=== PATIENT | female | born 1965 | race Caucasian/White ===

== ENCOUNTER 2017-11-29 14:58 | Emergency (ER) | payer SELFPAY ==
[~2017-11-29] VITALS: Ht 157.5 cm; Wt 59.0 kg
[~2017-11-29 14:58] MED LIST: ALBU6.7H IH; FLUT1DIS IH; FLUT1DIS3 IH; LEVO125T5 PO; LEVO50TA5 PO; LEVO750T31 PO; LEVO75TA5 PO; NITR100C62 PO; WARF-78 PO; WARF10TA45 PO; WARF7.5T48 PO; no-kno
[2017-11-29 15:33] LABS: BASO # 0.1 x10^3/uL (0.0-0.2); BASO % 1 % (0-3); EOS # 0.3 x10^3/uL (0.0-0.7); EOS % 4 % (0-3); HEMATOCRIT 41.4 % (36.0-47.0); HEMOGLOBIN 13.7 g/dL (12.0-15.5); LYMPH # 1.8 x10^3/uL (1.0-4.8); LYMPH % 26 % (24-48); MEAN CORPUSCULAR HEMOGLOBIN 30 pg (25-35); MEAN CORPUSCULAR HGB CONC 33 g/dL (31-37); MEAN CORPUSCULAR VOLUME 91 fL (79-100); MONO # 0.5 x10^3/uL (0.0-1.1); MONO % 7 % (0-9); NEUT # 4.2 x10^3uL (1.8-7.7); NEUT % 62 % (31-73); PLATELET COUNT 285 x10^3/uL (140-400); RED BLOOD COUNT 4.56 x10^6/uL (3.50-5.40); RED CELL DISTRIBUTION WIDTH 15.7 % (11.5-14.5); WHITE BLOOD COUNT 6.8 x10^3/uL (4.0-11.0)
--- NOTE | 2017-11-29 15:45 | RAD ---
Examination: PORTABLE CHEST 1V History: PT states chest pain x1 week hx of COPD Comparison/Correlation: None Findings: Portable frontal view chest was obtained. Heart size and pulmonary vasculature are normal. No infiltrate or pleural effusion. Bony structures are normal. No pneumothorax. Impression: No active disease. Electronically signed by: Buddy Bernal MD (11/29/2017 3:42 PM) [facility]
[2017-11-29 15:49] LABS: ALBUMIN 3.5 g/dL (3.4-5.0); ALBUMIN/GLOBULIN RATIO 0.9 (1.0-1.7); CALCIUM 8.7 mg/dL (8.5-10.1); CREATININE 0.9 mg/dL (0.6-1.0); GFR 65.8; POTASSIUM 3.7 mmol/L (3.5-5.1); TOTAL BILIRUBIN 0.3 mg/dL (0.2-1.0); TOTAL PROTEIN 7.6 g/dL (6.4-8.2)
[2017-11-29] MEDS ORDERED: IOHEXOL 300 MG/ML 75 ML VIAL. IV ONE (16:15)
--- NOTE | 2017-11-29 16:56 | PHYS DOC ---
Past History Past Medical History: COPD, Hypothyroid, Other Past Surgical History: , Other Smoking: Cigarettes, Less than 1pk/day Alcohol Use: Rarely Drug Use: None Adult General Chief Complaint Chief Complaint: CHEST PAIN HPI HPI Patient is a 52 year old female who presents with complaining of chest pain and shortness of breath for one week. Patient complaining of a stabbing pain in her lower substernal and epigastric area with radiation to her back as a constant pain for the last one week associated with shortness of breath without nausea and vomiting, fever and chills. She rated her pain 9/10 and states the pain getting worse with movement and activity. Patient states she has history of PE on Xarelto but stopped taking Xarelto 2 months ago because of financial problem. Review of Systems Review of Systems Constitutional: Denies fever or chills [] Eyes: Denies change in visual acuity, redness, or eye pain [] HENT: Denies nasal congestion or sore throat [] Respiratory: Reports cough and shortness of breath Cardiovascular: No additional information not addressed in HPI [] GI: Denies abdominal pain, nausea, vomiting, bloody stools or diarrhea [] : Denies dysuria or hematuria [] Musculoskeletal: Denies back pain or joint pain [] Integument: Denies rash or skin lesions [] Neurologic: Denies headache, focal weakness or sensory changes [] Endocrine: Denies polyuria or polydipsia [] All other systems were reviewed and found to be within normal limits, except as documented in this note. Current Medications Current Medications Current Medications Medications (Trade) Dose Ordered Sig/[facility] Start Time Stop Time Status Last Admin Dose Admin Iohexol (Omnipaque 300 Mg/ml) 75 ml 1X ONCE 11/29/17 16:15 11/29/17 16:17 DC 11/29/17 16:27 75 ML Allergies Allergies Allergies Coded Allergies Type Severity Reaction Last Updated Verified Penicillins Allergy Severe TONGUE SWELLING 12/27/13 Yes Physical Exam Physical Exam Constitutional: Well developed, well nourished, mild distress, non-toxic appearance. [] HENT: Normocephalic, atraumatic, oropharynx moist, no oral exudates, nose normal. [] Eyes: PERRLA, EOMI, conjunctiva normal, no discharge. [] Neck: Normal range of motion, no tenderness, supple, no stridor. [] Cardiovascular:Heart rate regular rhythm, no murmur [] LUNG: Normal bilateral breath sounds, reproducible substernal and epigastric pain Abdomen: Bowel sounds normal, soft, no tenderness, no masses, no pulsatile masses. [] Skin: Warm, dry, no erythema, no rash. [] Back: No tenderness, no CVA tenderness. [] Extremities: No tenderness, no cyanosis, no clubbing, ROM intact, no edema. [] Neurologic: Alert and oriented X 3, normal motor function, normal sensory function, no focal deficits noted. [] Psychologic: Affect anxious, judgement normal, mood normal. [] Current Patient Data Vital Signs Vital Signs Date Time Temp Pulse Resp B/P (MAP) Pulse Ox O2 Delivery O2 Flow Rate FiO2 11/29/17 16:08 80 16 120/77 (91) 95 Room Air 11/29/17 15:05 97.5 Lab Results Laboratory Tests Test 11/29/17 15:18 White Blood Count 6.8 x10^3/uL (4.0-11.0) Red Blood Count 4.56 x10^6/uL (3.50-5.40) Hemoglobin 13.7 g/dL (12.0-15.5) Hematocrit 41.4 % (36.0-47.0) Mean Corpuscular Volume 91 fL (79-100) Mean Corpuscular Hemoglobin 30 pg (25-35) Mean Corpuscular Hemoglobin Concent 33 g/dL (31-37) Red Cell Distribution Width 15.7 % (11.5-14.5) H Platelet Count 285 x10^3/uL (140-400) Neutrophils (%) (Auto) 62 % (31-73) Lymphocytes (%) (Auto) 26 % (24-48) Monocytes (%) (Auto) 7 % (0-9) Eosinophils (%) (Auto) 4 % (0-3) H Basophils (%) (Auto) 1 % (0-3) Neutrophils # (Auto) 4.2 x10^3uL (1.8-7.7) Lymphocytes # (Auto) 1.8 x10^3/uL (1.0-4.8) Monocytes # (Auto) 0.5 x10^3/uL (0.0-1.1) Eosinophils # (Auto) 0.3 x10^3/uL (0.0-0.7) Basophils # (Auto) 0.1 x10^3/uL (0.0-0.2) Sodium Level 141 mmol/L (136-145) Potassium Level 3.7 mmol/L (3.5-5.1) Chloride Level 102 mmol/L (98-107) Carbon Dioxide Level 32 mmol/L (21-32) Anion Gap 7 (6-14) Blood Urea Nitrogen 13 mg/dL (7-20) Creatinine 0.9 mg/dL (0.6-1.0) Estimated GFR (Cockcroft-Gault) 65.8 BUN/Creatinine Ratio 14 (6-20) Glucose Level 87 mg/dL (70-99) Calcium Level 8.7 mg/dL (8.5-10.1) Total Bilirubin 0.3 mg/dL (0.2-1.0) Aspartate Amino Transferase (AST) 124 U/L (15-37) H Alanine Aminotransferase (ALT) 138 U/L (14-59) H Alkaline Phosphatase 123 U/L (46-116) H Creatine Kinase 129 U/L (26-192) Troponin I Quantitative < 0.017 ng/mL (0-0.055) Total Protein 7.6 g/dL (6.4-8.2) Albumin 3.5 g/dL (3.4-5.0) Albumin/Globulin Ratio 0.9 (1.0-1.7) L EKG EKG EKG interpreted by me. EKG at 1506 showed normal sinus rhythm at rate of 82, leftward axis, poor R-wave progress in inferior leads, no acute ST and T-wave abnormalities Radiology/Procedures Radiology/Procedures [address] [address] IMAGING REPORT Signed PATIENT: AMARI TALAMANTES ACCOUNT: [id number] : 1965 LOCATION: ER AGE: 52 SEX: F EXAM STATUS: REG ER ORD. PHYSICIAN: CHRISTIANO ALONZO MD REASON: chest pain PROCEDURE: PORTABLE CHEST 1V Examination: PORTABLE CHEST 1V History: PT states chest pain x1 week hx of COPD Comparison/Correlation: None Findings: Portable frontal view chest was obtained. Heart size and pulmonary vasculature are normal. No infiltrate or pleural effusion. Bony structures are normal. No pneumothorax. Impression: No active disease. Electronically signed by: Buddy Polanco MD (11/29/2017 3:42 PM) [facility] DICTATED AND SIGNED BY: BUDDY POLANCO MD DATE: 11/29/17 1541 CC: ANA MARÍA HERNANDEZ APRN; CHRISTIANO ALONZO MD ~ [address] [address] IMAGING REPORT Signed PATIENT: AMARI TALAMANTES ACCOUNT: [id number] : 1965 LOCATION: ER AGE: 52 SEX: F EXAM STATUS: REG ER ORD. PHYSICIAN: CHRISTIANO ALONZO MD REASON: chest pain and shortness of breath with history of PE PROCEDURE: CT ANGIOGRAPHY CHEST CT ANGIOGRAPHY CHEST Indication: CHEST PAIN HX OF PE 75 mL OMNI 300 . Comparison: Limited images from September 10, 2014, no report. Technique: After intravenous contrast administration, CT imaging was performed of the chest. MIP reconstructions were obtained. Exposure: One or more of the following individualized dose reduction techniques were utilized for this examination: 1. Automated exposure control 2. Adjustment of the mA and/or kV according to patient size 3. Use of iterative reconstruction technique. FINDINGS: Pulmonary arteries: Small embolism identified in posterior segment right lower lobe pulmonary artery. It is difficult to determine if this is acute or chronic, but could be acute. No other definite emboli are identified. Thoracic aorta: Borderline ascending aortic ectasia at 4 cm. This is similar to the prior exam. No descending aortic aneurysm. Due to bolus timing, the aorta is not adequately opacified with contrast to exclude dissection. Thyroid gland:Visualized aspect is unremarkable. Lymph nodes:No significant enlargement Heart: No significant pericadial effusion. Esophagus: Unremarkable Pleural spaces: No significant effusion Lungs: Noncalcified left upper lobe nodule or opacity measures 15 mm. This region is included on the available images from the prior study, and this was not present at that time. Several small subpleural nodular opacities at the right lung apex, largest measures 5 mm. Mild markings in the lung bases, compatible with fibrosis or atelectasis. Trachea and central airways: Patent Bones: Degenerative spondylosis. No aggressive bone destruction. Upper abdomen: Slices through the upper abdomen are limited due to the technique . Large gallstone is partially visualized. IMPRESSION: 1. Positive for pulmonary embolism. Small embolism identified in right lower lobe posterior segmental branch. 2. Left upper lobe opacity or mass measures 15 mm diameter. Malignant etiology is possible. As per Fleischner Society guidelines, consider follow-up CT chest in 3 months, PET/CT scan or tissue sampling. Note there are several additional smaller nonspecific subpleural nodules at the right lung apex. 3. Cholelithiasis FOR INTERNAL CODING PURPOSES Critical result: Findings discussed with Dr. Alonzo at 11/29/2017 5:13 PM. RESULT CODE: (C) Electronically signed by: Jesus Gomes MD (11/29/2017 5:14 PM) [facility] DICTATED AND SIGNED BY: JESUS GOMES MD DATE: 11/29/17 386 CC: ANA MARÍA HERNANDEZ APRN; CHRISTIANO ALONZO MD ~ [place] [address] IMAGING REPORT Signed PATIENT: AMARI TALAMANTES ACCOUNT: [id number] : 1965 LOCATION: ER AGE: 52 SEX: F EXAM STATUS: REG ER ORD. PHYSICIAN: CHRISTIANO ALONZO MD REASON: epigastric pain and elevated liver function tests PROCEDURE: ABDOMEN LTD Examination: ABDOMEN LTD History: Epigastric pain, elevated liver function enzymes Comparison/Correlation: None Findings: Hepatic echotexture is normal. Portal vein spectral waveform and color Doppler flow and normal. Proximal pancreas is unremarkable. Distal pancreas is obscured by bowel gas. Liver length is 18.3 cm. Calculus is present within the gallbladder neck. Calculus at the gallbladder fundus also seen. Calculi are not mobile. Gallbladder wall thickness is within normal limits. No biliary dilatation. Common bile duct measures 0.7 cm diameter. Inferior vena cava is normal. No right hydronephrosis. Right kidney measures 10.8 cm longitudinal. Impression: Cholelithiasis without findings of acute cholecystitis. Electronically signed by: Buddy Polanco MD (11/29/2017 5:55 PM) [facility] DICTATED AND SIGNED BY: UBDDY POLANCO MD DATE: 11/29/17 5822 CC: ANA MARÍA HERNANDEZ APRN; CHRISTIANO ALONZO MD ~ Course & Med Decision Making Course & Med Decision Making Pertinent Labs and Imaging studies reviewed. (See chart for details) Evaluation of patient in ER showed 52-year-old female patient with history of PE without taking anticoagulation medication presented with complaining of chest pain and shortness of breath for one week. CT of chest showed small PE and coronary because his and pulmonary nodules. Ultrasound of gallbladder did not show acute cholecystitis. Patient treated with Toradol and Lovenox. Dr. Bhatia accepted admission at 1807. Dragon Disclaimer Dragon Disclaimer This electronic medical record was generated, in whole or in part, using a voice recognition dictation system. Departure Departure: Impression: Primary Impression: Pulmonary embolism and infarction Additional Impressions: Chest pain Elevated liver function tests Tobacco abuse Cholelithiasis Disposition: ADMITTED INPATIENT (at 1808) Admitting Physician: Other (Dr. Bhatia accepted admission at 1807) Condition: GUARDED Referrals: ANA MARÍA HERNANDEZ APRN (PCP) Problem Qualifiers CHRISTIANO ALONZO MD Nov 29, 2017 16:56
[2017-11-29] MEDS ORDERED: KETOROLAC 30 MG/ML VIAL. IV ONE (17:00)
--- NOTE | 2017-11-29 17:17 | RAD ---
CT ANGIOGRAPHY CHEST Indication: CHEST PAIN HX OF PE 75 mL OMNI 300 . Comparison: Limited images from September 10, 2014, no report. Technique: After intravenous contrast administration, CT imaging was performed of the chest. MIP reconstructions were obtained. Exposure: One or more of the following individualized dose reduction techniques were utilized for this examination: 1. Automated exposure control 2. Adjustment of the mA and/or kV according to patient size 3. Use of iterative reconstruction technique. FINDINGS: Pulmonary arteries: Small embolism identified in posterior segment right lower lobe pulmonary artery. It is difficult to determine if this is acute or chronic, but could be acute. No other definite emboli are identified. Thoracic aorta: Borderline ascending aortic ectasia at 4 cm. This is similar to the prior exam. No descending aortic aneurysm. Due to bolus timing, the aorta is not adequately opacified with contrast to exclude dissection. Thyroid gland:Visualized aspect is unremarkable. Lymph nodes:No significant enlargement Heart: No significant pericadial effusion. Esophagus: Unremarkable Pleural spaces: No significant effusion Lungs: Noncalcified left upper lobe nodule or opacity measures 15 mm. This region is included on the available images from the prior study, and this was not present at that time. Several small subpleural nodular opacities at the right lung apex, largest measures 5 mm. Mild markings in the lung bases, compatible with fibrosis or atelectasis. Trachea and central airways: Patent Bones: Degenerative spondylosis. No aggressive bone destruction. Upper abdomen: Slices through the upper abdomen are limited due to the technique . Large gallstone is partially visualized. IMPRESSION: 1. Positive for pulmonary embolism. Small embolism identified in right lower lobe posterior segmental branch. 2. Left upper lobe opacity or mass measures 15 mm diameter. Malignant etiology is possible. As per Fleischner Society guidelines, consider follow-up CT chest in 3 months, PET/CT scan or tissue sampling. Note there are several additional smaller nonspecific subpleural nodules at the right lung apex. 3. Cholelithiasis FOR INTERNAL CODING PURPOSES Critical result: Findings discussed with Dr. Dalton at 11/29/2017 5:13 PM. RESULT CODE: (C) Electronically signed by: Jesus Gomes MD (11/29/2017 5:14 PM) [facility] [place]
--- NOTE | 2017-11-29 17:29 | EKG ---
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
[2017-11-29] MEDS ORDERED: ENOXAPARIN ** NOTE DOSE ** SYRINGE SQ ONE (17:30)
--- NOTE | 2017-11-29 17:59 | RAD ---
Examination: ABDOMEN LTD History: Epigastric pain, elevated liver function enzymes Comparison/Correlation: None Findings: Hepatic echotexture is normal. Portal vein spectral waveform and color Doppler flow and normal. Proximal pancreas is unremarkable. Distal pancreas is obscured by bowel gas. Liver length is 18.3 cm. Calculus is present within the gallbladder neck. Calculus at the gallbladder fundus also seen. Calculi are not mobile. Gallbladder wall thickness is within normal limits. No biliary dilatation. Common bile duct measures 0.7 cm diameter. Inferior vena cava is normal. No right hydronephrosis. Right kidney measures 10.8 cm longitudinal. Impression: Cholelithiasis without findings of acute cholecystitis. Electronically signed by: Buddy Bernal MD (11/29/2017 5:55 PM) [facility]
[2017-11-29 19:13] VITALS: BP 140/95
== END 2017-11-29 19:15 | disposition left against medical advice (07) ==
LOC: ER 14:58 → UNDOADMIN 18:08 → 1 SOUTH 18:08
DX: I26.99 Other pulmonary embolism without acute cor pulmonale (principal); R79.89 Other specified abnormal findings of blood chemistry; K80.20 Calculus of gallbladder without cholecystitis without obstruction; J44.9 Chronic obstructive pulmonary disease, unspecified; E03.9 Hypothyroidism, unspecified; F17.210 Nicotine dependence, cigarettes, uncomplicated; Z88.0 Allergy status to penicillin
CPT/HCPCS: 36415; 71045; 71275; 76705; 80053; 82550; 84484; 85025; 93005; 96372; 96374; 99285; J1650; J1885; Q9967

== ENCOUNTER 2018-01-02 03:03 | Inpatient (IN) | payer SELFPAY ==
[~2018-01-02] VITALS: Ht 162.6 cm; Wt 73.7 kg
--- NOTE | 2018-01-02 03:11 | ED.ADGEN ---
Past History Past Medical History: COPD, Hypothyroid, Other Past Surgical History: , Other Smoking: Cigarettes, Less than 1pk/day Alcohol Use: Rarely Drug Use: None Adult General Chief Complaint Chief Complaint ".. I fell about a month ago... and hurt this Rt hip.... but it has continue to hurt.. it hurts a lot more tonight.. and my chest pain is worse the last two days.. much worse tonight.. I been out my Xarelto.. I got that lung mass and was to get a biopsy which hasn't been scheduled yet... ".." I go to [place]... " " I am down to 1/2 cigarette a day...." HPI HPI Patient is a 52 year old female who presents with above hx and complaints "bad" chest pain and Rt. hip pain. Pt. seen in , and found to have a PE and Lung Mass. Pt. has run out of her Xeralto. Pt does continue to smoke. Pt. normally follow at [place]. Pt. localizes chest pain to just Lt of sternal lower half. Nothing makes the pain better. Patient insisted labs today and markedly increased tonight. Patient also complaining of increased pain in right hip and knee range of motion. Does have a remote history of a fall with no improvement of right hip pain. Distal neurovascular intact. Patient was able to walk into the emergency department. Patient denies any other illicit drug use. Patient denies any trauma. Patient has not had a follow-up appointment for biopsy of lung mass. Review of Systems Review of Systems Constitutional: Denies fever or chills [] Eyes: Denies change in visual acuity, redness, or eye pain [] HENT: Denies nasal congestion or sore throat [] Respiratory: Denies cough or shortness of breath [] Cardiovascular: No additional information not addressed in HPI [] GI: Denies abdominal pain, nausea, vomiting, bloody stools or diarrhea [] : Denies dysuria or hematuria [] Musculoskeletal: Denies back pain or joint pain []Except complaints of Rt. hip pain. Integument: Denies rash or skin lesions [] Neurologic: Denies headache, focal weakness or sensory changes [] Endocrine: Denies polyuria or polydipsia [] All other systems were reviewed and found to be within normal limits, except as documented in this note. Family History Family History Noncontributory Current Medications Current Medications Current Medications Medications (Trade) Dose Ordered Sig/[facility] Start Time Stop Time Status Last Admin Dose Admin Aspirin (Children'S Aspirin) 324 mg 1X ONCE 01/02/18 03:30 01/02/18 03:31 DC 01/02/18 04:29 324 MG Info (Do NOT chart on this entry -- for MONITORING) 1 each PRN DAILY PRN 01/02/18 03:45 01/02/18 16:31 DC Iohexol (Omnipaque 300 Mg/ml) 75 ml 1X ONCE 01/02/18 04:00 01/02/18 04:01 DC 01/02/18 03:52 75 ML Lactated Ringer's 1,000 ml @ 100 mls/hr Q10H 01/02/18 03:30 01/02/18 13:29 DC 01/02/18 04:29 100 MLS/HR Morphine Sulfate (Morphine 10mg Syringe) 10 mg 1X ONCE 01/02/18 03:30 01/02/18 03:31 DC 01/02/18 04:31 10 MG Allergies Allergies Allergies Coded Allergies Type Severity Reaction Last Updated Verified Penicillins Allergy Severe TONGUE SWELLING 12/27/13 Yes Physical Exam Physical Exam Constitutional: in acute distress, non-toxic appearance. [] HENT: Normocephalic, atraumatic, bilateral external ears normal, oropharynx moist, no oral exudates, nose normal. [] Eyes: PERRLA, EOMI, conjunctiva normal, no discharge. [] Neck: Normal range of motion, no tenderness, supple, no stridor. [] Cardiovascular: Bradycardia Heart rate regular rhythm, no murmur [] Lungs & Thorax: Bilateral breath sounds equal at apexes scattered wheezes on Auscultation [] Abdomen: Bowel sounds normal, soft, no tenderness, no masses, no pulsatile masses. [] Scar in abd. Skin: Warm, dry, no erythema, no rash. [] Back: No tenderness, no CVA tenderness. [] Extremities: No tenderness, no cyanosis, no clubbing, ROM intact, no edema. [] No cording appreciate. Pain appear to follow branch of sciatic nerve in Rt. hip. Neurologic: Alert and oriented X 3, normal motor function, normal sensory function, no focal deficits noted. [] Psychologic: Affect anxious, judgement normal, mood normal. [] Current Patient Data Vital Signs Vital Signs Date Time Temp Pulse Resp B/P (MAP) Pulse Ox O2 Delivery O2 Flow Rate FiO2 01/02/18 03:16 98.2 66 18 98 Lab Results Laboratory Tests Test 01/02/18 03:30 01/02/18 04:30 White Blood Count 5.7 x10^3/uL (4.0-11.0) Red Blood Count 4.10 x10^6/uL (3.50-5.40) Hemoglobin 13.1 g/dL (12.0-15.5) Hematocrit 38.2 % (36.0-47.0) Mean Corpuscular Volume 93 fL (79-100) Mean Corpuscular Hemoglobin 32 pg (25-35) Mean Corpuscular Hemoglobin Concent 34 g/dL (31-37) Red Cell Distribution Width 18.6 % (11.5-14.5) H Platelet Count 235 x10^3/uL (140-400) Neutrophils (%) (Auto) 38 % (31-73) Lymphocytes (%) (Auto) 48 % (24-48) Monocytes (%) (Auto) 9 % (0-9) Eosinophils (%) (Auto) 4 % (0-3) H Basophils (%) (Auto) 1 % (0-3) Neutrophils # (Auto) 2.1 x10^3uL (1.8-7.7) Lymphocytes # (Auto) 2.7 x10^3/uL (1.0-4.8) Monocytes # (Auto) 0.5 x10^3/uL (0.0-1.1) Eosinophils # (Auto) 0.2 x10^3/uL (0.0-0.7) Basophils # (Auto) 0.1 x10^3/uL (0.0-0.2) Prothrombin Time 10.7 SEC (9.4-11.4) Prothrombin Time INR 1.1 (0.9-1.1) PTT 28 SEC (23-33) D-Dimer (Felipa) 0.36 mg/L (0.00-0.50) Sodium Level 140 mmol/L (136-145) Potassium Level 3.3 mmol/L (3.5-5.1) L Chloride Level 104 mmol/L (98-107) Carbon Dioxide Level 30 mmol/L (21-32) Anion Gap 6 (6-14) Blood Urea Nitrogen 9 mg/dL (7-20) Creatinine 0.9 mg/dL (0.6-1.0) Estimated GFR (Cockcroft-Gault) 65.8 Glucose Level 96 mg/dL (70-99) Calcium Level 8.6 mg/dL (8.5-10.1) Magnesium Level 1.9 mg/dL (1.8-2.4) Total Bilirubin 0.4 mg/dL (0.2-1.0) Direct Bilirubin 0.1 mg/dL (0.0-0.2) Aspartate Amino Transferase (AST) 117 U/L (15-37) H Alanine Aminotransferase (ALT) 288 U/L (14-59) H Alkaline Phosphatase 146 U/L (46-116) H Creatine Kinase 96 U/L (26-192) Troponin I Quantitative < 0.017 ng/mL (0-0.055) PB-Gub-L-Type Natriuretic Peptide 22 pg/mL (0-124) Total Protein 7.2 g/dL (6.4-8.2) Albumin 3.5 g/dL (3.4-5.0) Triglycerides Level 72 mg/dL (0-150) Cholesterol Level 155 mg/dL (0-200) LDL Cholesterol, Calculated 94 mg/dL (0-100) VLDL Cholesterol, Calculated 14 mg/dL (0-40) Non-HDL Cholesterol Calculated 108 mg/dL (0-129) HDL Cholesterol 47 mg/dL (40-60) Cholesterol/HDL Ratio 3.0 Lipase 235 U/L (73-393) Thyroid Stimulating Hormone (TSH) 7.545 uIU/mL (0.358-3.740) Urine Collection Type U cath Urine Color Yellow Urine Clarity Hazy Urine pH 6.0 Urine Specific [place] <=1.005 Urine Protein Neg (NEG-TRACE) Urine Glucose (UA) Neg mg/dL (NEG) Urine Ketones (Stick) Neg mg/dL (NEG) Urine Blood Neg (NEG) Urine Nitrite Neg (NEG) Urine Bilirubin Neg (NEG) Urine Urobilinogen Dipstick 0.2 mg/dL (0.2 mg/dL) Urine Leukocyte Esterase Trace (NEG) Urine RBC 0 /HPF (0-2) Urine WBC 1-4 /HPF (0-4) Urine Squamous Epithelial Cells Few /LPF Urine Bacteria Few /HPF (0-FEW) Urine Opiates Screen Neg (NEG) Urine Methadone Screen Neg (NEG) Urine Barbiturates Neg (NEG) Urine Phencyclidine Screen Neg (NEG) Urine Amphetamine/Methamphetamine Neg (NEG) Urine Benzodiazepines Screen Neg (NEG) Urine Cocaine Screen Neg (NEG) Urine Cannabinoids Screen Neg (NEG) Urine Ethyl Alcohol Neg (NEG) EKG EKG I interpretation of EKG shows sinus rhythm at 65 bpm. Slightly irregular rhythm. Does appear to have P waves. There is left axis changes. Some nonspecific anterior septal changes. But no findings acute STEMI of contralateral changes.[] Radiology/Procedures Radiology/Procedures My interpretation of chest x-ray shows no acute changes from prior chest x-rays on file. Does have some pulmonary nodules left upper lobe. And patchy right lower lobe blunting. CT of chest shows interval change from prior CT on file. Pulmonary nodules. No acute PE.[] My interpretation of pelvis and hip film shows no obvious fracture dislocation. Degenerative joint changes. CT findings of pelvis shows no obvious fracture dislocation. There is noted marked no flame oh narrowing. There is no central stenosis. See formal report when available. Course & Med Decision Making Course & Med Decision Making Pertinent Labs and Imaging studies reviewed. (See chart for details) Pt. to be admitted to Dr. Mehta- with cardiology consult. [] Final Impression Final Impression 1. Chest Pain 2. Hx of Lung Mass- / Nodules 3. Hx. of Pul. embolism 4. Hx. of COPD[] 5. Rt. Hip pain- Suspect Sciatica 6. Hypokalemia 3.3 7. Elevated LFT's AST 117, ALT 288, Alk Phos 146 Dragon Disclaimer Dragon Disclaimer This electronic medical record was generated, in whole or in part, using a voice recognition dictation system. NENITA HUTCHINS MD Jan 02, 2018 03:11
--- NOTE | 2018-01-02 03:24 | EKG ---
[address] [address] Test Date: 2018-01-02 Test Time: 03:15:33 Pat Name: AMARI GREGG Department: Room: Gender: F Highway Design Engineer: : 1965 Requested By: NENITA HUTCHINS Order Number: [id number] Reading MD: Chuy Montoya MD Measurements Intervals [place] [address] [place] Rate: 65 P: DC: QRS: -21 QRSD: 86 T: 0 QT: 404 QTc: 421 Interpretive Statements SR PVC Electronically Signed On 01-02-2018 13:08:05 CDT by Chuy Montoya MD
[2018-01-02] MEDS ORDERED: IV RINGERS SOLUTION,LACTATED 1,000 ML IV SCH (03:30)
[2018-01-02] MEDS ORDERED: MORPHINE SULFATE 10 MG/ML SYRINGE. SQ ONE (03:30)
[2018-01-02] MEDS ORDERED: ASPIRIN 81 MG TAB.CHEW PO ONE (03:30)
[2018-01-02] MEDS ORDERED: CONTRAST GIVEN MC PRN (03:45)
[2018-01-02 03:54] LABS: BASO # 0.1 x10^3/uL (0.0-0.2); BASO % 1 % (0-3); EOS # 0.2 x10^3/uL (0.0-0.7); EOS % 4 % (0-3); HEMATOCRIT 38.2 % (36.0-47.0); HEMOGLOBIN 13.1 g/dL (12.0-15.5); LYMPH # 2.7 x10^3/uL (1.0-4.8); LYMPH % 48 % (24-48); MEAN CORPUSCULAR HEMOGLOBIN 32 pg (25-35); MEAN CORPUSCULAR HGB CONC 34 g/dL (31-37); MEAN CORPUSCULAR VOLUME 93 fL (79-100); MONO # 0.5 x10^3/uL (0.0-1.1); MONO % 9 % (0-9); NEUT # 2.1 x10^3uL (1.8-7.7); NEUT % 38 % (31-73); PLATELET COUNT 235 x10^3/uL (140-400); RED CELL DISTRIBUTION WIDTH 18.6 % (11.5-14.5); WHITE BLOOD COUNT 5.7 x10^3/uL (4.0-11.0)
[2018-01-02] MEDS ORDERED: IOHEXOL 300 MG/ML 75 ML VIAL. IV ONE (04:00)
[2018-01-02 04:06] LABS: ALBUMIN 3.5 g/dL (3.4-5.0); CALCIUM 8.6 mg/dL (8.5-10.1); CREATININE 0.9 mg/dL (0.6-1.0); DIRECT BILIRUBIN 0.1 mg/dL (0.0-0.2); GFR 65.8; MAGNESIUM 1.9 mg/dL (1.8-2.4); POTASSIUM 3.3 mmol/L (3.5-5.1); TOTAL BILIRUBIN 0.4 mg/dL (0.2-1.0); TOTAL PROTEIN 7.2 g/dL (6.4-8.2)
--- NOTE | 2018-01-02 04:42 | RAD ---
CTA Chest with contrast: Clinical History: Severe lower back pain, fall 1 month ago. Hx: Hernia repair Shortness of breath. Axial helical images of the chest were obtained after the administration of 75 cc of IV Omni 300 and timed appropriately for a pulmonary arterial study. Conventional axial reconstruction was performed in addition to coronal, sagittal and bilateral oblique MIP (maximum intensity projection). This study was ordered to detect possible pulmonary embolism. There are no filling defects to suggest pulmonary embolism. The more peripheral subsegmental pulmonary arteries are not well opacified limiting our sensitivity for small peripheral pulmonary emboli. There is a nodular opacity in the left upper lobe that measures 8 mm x 1 1 cm. There is patchy opacity in the right lower lobe laterally abutting the pleura that measures 1.7 x 0.9 cm. There is no mediastinal or hilar lymphadenopathy. The ascending thoracic aorta is mildly dilated to 3.6 cm in diameter. Impression: 1. No evidence of pulmonary embolism. 2. Mildly dilated ascending thoracic aorta. 3. 2 pulmonary nodules. Recommend a three-month follow-up CT the chest without contrast. CT lumbar spine without contrast History: Back pain Axial helical images of the lumbar spine were obtained without contrast. Axial, coronal and sagittal reconstruction was performed. Findings: The vertebral bodies are aligned. There is no loss of vertebral body stature. Evaluation of the central canal is limited without contrast. There is no significant central stenosis. There is moderate narrowing of the neuroforamen bilaterally below the level of the exiting nerve roots. There is spondylolysis on the right at L5-S1. End impression CT pelvis without contrast: Axial helical images of the pelvis were obtained and axial coronal and sagittal reconstruction was performed. FINDINGS: The visualized osseous structures appear intact. There is no free fluid. IMPRESSION: No acute findings. See CTA chest with contrast. PQRS Compliance Statement: One or more of the following individualized dose reduction techniques were utilized for this examination: 1. Automated exposure control 2. Adjustment of the mA and/or kV according to patient size 3. Use of iterative reconstruction technique Electronically signed by: Thad Donahue III, MD (01/02/2018 4:38 AM) [facility] [id number]
[2018-01-02 04:54] LABS: BILIRUBIN,URINE NEG (NEG); CLARITY,URINE HAZY; COLOR,URINE YELLOW; GLUCOSE,URINE NEG (NEG); NITRITE,URINE NEG (NEG); RBC,URINE 0 /HPF (0-2); UROBILINOGEN,URINE 0.2 mg/dL (0.2 mg/dL)
[2018-01-02 04:55] LABS: BACTERIA,URINE FEW /HPF (0-FEW); SQUAMOUS EPITHELIAL CELL,UR FEW /LPF
[2018-01-02 04:58] LABS: BARBITURATES NEG (NEG); BENZODIAZEPINES NEG (NEG); CANNABINOIDS NEG (NEG); COCAINE NEG (NEG); METHADONE NEG (NEG); OPIATES NEG (NEG); PHENCYCLIDINE NEG (NEG)
[2018-01-02] MEDS ORDERED: ONDANSETRON PF 4 MG/2 ML VIAL. IV PRN ×2 (05:00→09:30)
[2018-01-02] MEDS ORDERED: RIVAROXABAN 10 MG TABLET. PO SCH (05:00)
[2018-01-02 05:01] LABS: AMPHETAMINE/METHAMPHETAMINE NEG (NEG)
[2018-01-02] MEDS ORDERED: POTASSIUM CHLORIDE 20 MEQ/15 ML ORAL LIQUID. PO ONE (05:30)
[2018-01-02 06:43] VITALS: BP 111/79
--- NOTE | 2018-01-02 07:46 | RAD ---
AP and Lateral Views of the Chest 01/02/2018 3:14 AM Indication: Chest pain, cough, possible lung mass per patient dx'd 1mth ago, history of blood clots
Comparison: Chest radiograph November 29, 2017 Findings: Best seen on frontal view is a somewhat ill-defined nodular opacity, just lateral to the aortic arch in the left upper lobe. This is better delineated on prior CT of the chest. No pneumothorax, or pleural effusion is seen. Heart size is normal. No acute osseous changes are identified. IMPRESSION: 1.Similar nodular opacity in the medial left upper lobe 2. No other acute cardiopulmonary process is identified Electronically signed by: Salomon Trujillo MD (01/02/2018 7:43 AM) [id number]
[2018-01-02] MEDS: IPRATRPIUM/ALBUTEROL 0.5/2.5MG 3 ML NEBU. NEB SCH ×3 (08:00→15:23)
--- NOTE | 2018-01-02 08:07 | RAD ---
HIP RIGHT 2V WITH PELVIS Clinical Indication: Severe pelvic and rt hip pain, fall 1 mth ago. Hx: Hernia repair Comparison: None. Findings: No acute pelvic fracture. The sacroiliac joints are symmetric. No fracture or dislocation of the right hip. The mineralization is normal. Soft tissues unremarkable. IMPRESSION: No acute fracture. Electronically signed by: Bandar Ruano MD (01/02/2018 8:04 AM) [id number]
--- NOTE | 2018-01-02 09:31 | PDOC2 ---
DEBBIE BLAIR APRN 01/02/18 0930: CONSULT Date of Admission DATE: 01/02/18 TIME: 09:25 Reason for Consult: cp Problem List Problems Medical Problems: (1) Chest pain Status: Acute History of Present Illness Ms Navarro is a 52 year old female who presented to the ED with complaints of chest and hip pain. She has a history of recent diagnosed PE and Lung mass and has run out of her Xarelto. She states she only missed one dose. She is currently curled on her side with a washcloth over her face complaining of a headache and nausea caused by pain medications. History is limited and obtained mostly from the chart. She had apparently reported localized pain over the lower 1/2 of her sternum. She denies any exacerbation or relieving factors. She also complained of pain in her right hip and knee. She had a remote history of fall but reports no improvement since then. She Denies any recent fever, chills or illness. She had apparently been set up for further workup re: lung mass but according to her family member at the bedside, she did not go. She currently is answering yes or no questions only and keeping face covered. Past Medical History PAST MEDICAL HISTORY: Significant for DVT and multiple recurrent PEs, hypothyroidism, chronic obstructive pulmonary disease and recently diagnosed lung nodules/mass by report. Past Surgical History right inguinal hernia repair x2 and x2. Family History mother with history of multiple blood clots Social History SOCIAL HISTORY: prior smoker, denies ETOH or illicit drugs. normally follows with [facility] for primary care. Current Medications Current Medications Aspirin (Children'S Aspirin) 324 mg 1X ONCE PO Last administered on at 04:29; Start 01/02/18 at 03:30; Stop 01/02/18 at 03:31; Status DC Lactated Ringer's 1,000 ml @ 100 mls/hr Q10H IV Last administered on at 04:29; Start 01/02/18 at 03:30; Stop 01/02/18 at 13:29 Rivaroxaban (Xarelto) 20 mg DAILYWSUP PO Last administered on 01/02/18at 05:32 ; Start 01/02/18 at 05:00 Morphine Sulfate (Morphine 10mg Syringe) 10 mg 1X ONCE SQ Last administered on 01/02/18at 04:31; Start 01/02/18 at 03:30; Stop 01/02/18 at 03:31; Status DC Iohexol (Omnipaque 300 Mg/ml) 75 ml 1X ONCE IV Last administered on at 03:52; Start 01/02/18 at 04:00; Stop 01/02/18 at 04:01; Status DC Info (Do NOT chart on this entry -- for MONITORING) 1 each PRN DAILY PRN MC SEE COMMENTS; Start 01/02/18 at 03:45; Stop 01/04/18 at 03:44 Ondansetron HCl (Zofran) 4 mg PRN Q4HRS PRN IV NAUSEA/VOMITING; Start at 05:00; Stop 01/03/18 at 04:59 Albuterol/ Ipratropium (Duoneb) 3 ml RTQID NEB ; Start 01/02/18 at 08:00; Stop 01/03/18 at 07:59 Rivaroxaban (Xarelto) 15 mg DAILYWSUP PO ; Start 01/02/18 at 17:00; Status UNV Potassium Chloride (KCl Oral Soln) 40 meq 1X ONCE PO ; Start 01/02/18 at 05:30 ; Stop 01/02/18 at 05:31; Status DC Active Scripts Active Levothyroxine Sodium 125 Mcg Tablet 1 Tab PO DAILY PRN 30 Days Levaquin (Levofloxacin) 750 Mg Tablet 1 Tab PO DAILY Macrobid 100 Mg Capsule (Nitrofurantoin Monohyd/M-Cryst) 100 Mg Capsule 1 Cap PO BID Coumadin (Warfarin Sodium) 7.5 Mg Tablet 1 Tab PO DAILY PRN 30 Days Reported Proventil Hfa Inhaler (Albuterol Sulfate) 6.7 Gm Hfa.aer.ad 2 Puff IH Q4HRS PRN Advair 100-50 Diskus (Fluticasone/Salmeterol) 1 Each Disk.w.dev 1 Puff IH BID 2 times daily Proventil Hfa Inhaler (Albuterol Sulfate) 6.7 Gm Hfa.aer.ad 1 Puff IH PRN Levothyroxine Sodium 50 Mcg Tablet 50 Mcg PO DAILY Coumadin (Warfarin Sodium) 7.5 Mg Tablet 7.5 Mg PO DAILY Coumadin (Warfarin Sodium) 10 Mg Tablet 10 Mg PO DAILY Advair 250-50 Diskus (Fluticasone/Salmeterol) 1 Each Disk.w.dev 1 Each IH DAILY Allergies: Coded Allergies: Penicillins (Verified Allergy, Severe, TONGUE SWELLING, 12/27/13) Review of System as per HPI with currently complaint of headache, lung nodules and pulmonary embolus. Chest pain and otherwise unable to obtain information due to current condition/ mood. General: YES: Fatigue General: Oriented X3, moderate distress HEENT: Atraumatic, Mucous membr. moist/pink Lungs: Clear to auscultation Heart: Other (normal heart sounds without murmurs, gallops or rubs but difficult to hear due to position) Abdomen: Normal bowel sounds Extremities: No cyanosis, No edema, Normal pulses Neuro: Normal speech Psych/Mental Status: Mental status NL VITALS Vital Signs Date Time Temp Pulse Resp B/P (MAP) Pulse Ox O2 Delivery O2 Flow Rate FiO2 01/02/18 06:43 97.2 62 20 111/79 (90) 91 Room Air Labs Laboratory Tests Test 01/02/18 03:30 01/02/18 04:30 White Blood Count 5.7 x10^3/uL (4.0-11.0) Red Blood Count 4.10 x10^6/uL (3.50-5.40) Hemoglobin 13.1 g/dL (12.0-15.5) Hematocrit 38.2 % (36.0-47.0) Mean Corpuscular Volume 93 fL (79-100) Mean Corpuscular Hemoglobin 32 pg (25-35) Mean Corpuscular Hemoglobin Concent 34 g/dL (31-37) Red Cell Distribution Width 18.6 % (11.5-14.5) Platelet Count 235 x10^3/uL (140-400) Neutrophils (%) (Auto) 38 % (31-73) Lymphocytes (%) (Auto) 48 % (24-48) Monocytes (%) (Auto) 9 % (0-9) Eosinophils (%) (Auto) 4 % (0-3) Basophils (%) (Auto) 1 % (0-3) Neutrophils # (Auto) 2.1 x10^3uL (1.8-7.7) Lymphocytes # (Auto) 2.7 x10^3/uL (1.0-4.8) Monocytes # (Auto) 0.5 x10^3/uL (0.0-1.1) Eosinophils # (Auto) 0.2 x10^3/uL (0.0-0.7) Basophils # (Auto) 0.1 x10^3/uL (0.0-0.2) Prothrombin Time 10.7 SEC (9.4-11.4) Prothromb Time International Ratio 1.1 (0.9-1.1) Activated Partial Thromboplast Time 28 SEC (23-33) D-Dimer (Felipa) 0.36 mg/L (0.00-0.50) Sodium Level 140 mmol/L (136-145) Potassium Level 3.3 mmol/L (3.5-5.1) Chloride Level 104 mmol/L (98-107) Carbon Dioxide Level 30 mmol/L (21-32) Anion Gap 6 (6-14) Blood Urea Nitrogen 9 mg/dL (7-20) Creatinine 0.9 mg/dL (0.6-1.0) Estimated GFR (Cockcroft-Gault) 65.8 Glucose Level 96 mg/dL (70-99) Calcium Level 8.6 mg/dL (8.5-10.1) Magnesium Level 1.9 mg/dL (1.8-2.4) Total Bilirubin 0.4 mg/dL (0.2-1.0) Direct Bilirubin 0.1 mg/dL (0.0-0.2) Aspartate Amino Transf (AST/SGOT) 117 U/L (15-37) Alanine Aminotransferase (ALT/SGPT) 288 U/L (14-59) Alkaline Phosphatase 146 U/L (46-116) Creatine Kinase 96 U/L (26-192) Troponin I Quantitative < 0.017 ng/mL (0-0.055) KW-Dkm-C-Type Natriuretic Peptide 22 pg/mL (0-124) Total Protein 7.2 g/dL (6.4-8.2) Albumin 3.5 g/dL (3.4-5.0) Lipase 235 U/L (73-393) Urine Collection Type U cath Urine Color Yellow Urine Clarity Hazy Urine pH 6.0 Urine Specific [place] <=1.005 Urine Protein Neg (NEG-TRACE) Urine Glucose (UA) Neg mg/dL (NEG) Urine Ketones (Stick) Neg mg/dL (NEG) Urine Blood Neg (NEG) Urine Nitrite Neg (NEG) Urine Bilirubin Neg (NEG) Urine Urobilinogen Dipstick 0.2 mg/dL (0.2 mg/dL) Urine Leukocyte Esterase Trace (NEG) Urine RBC 0 /HPF (0-2) Urine WBC 1-4 /HPF (0-4) Urine Squamous Epithelial Cells Few /LPF Urine Bacteria Few /HPF (0-FEW) Urine Opiates Screen Neg (NEG) Urine Methadone Screen Neg (NEG) Urine Barbiturates Neg (NEG) Urine Phencyclidine Screen Neg (NEG) Urine Amphetamine/Methamphetamine Neg (NEG) Urine Benzodiazepines Screen Neg (NEG) Urine Cocaine Screen Neg (NEG) Urine Cannabinoids Screen Neg (NEG) Urine Ethyl Alcohol Neg (NEG) Assessment/Plan 1. chest pain, atypical - CE neg x 1, no acute EKG abn. 2. cephalgia - ? secondary to analgesics. per PCP 3. PE - per PCP. on anticoag, missed 1 day per pt. History of recurrent PE. ?candidate for IVC filter. 4. lung nodule/mass - per PCP 5. hepatic insufficiency - per PCP 5. medical non compliance Chest pain appears non cardiac though she is not communicative this am due to cephalgia and history was limited. Check echo and serial enzymes. consider MPI unless significant abn. TAB TIMMONS MD 01/02/18 2310: CONSULT Assessment/Plan Pt. seen and examined. 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 52 y.o with non-cardiac chest pain. Poor medication compliance. EKG/labs wnl. Needs close outpt f/u with her PCP. Supportive care. Thanks. DEBBEI BLAIR APRN Jan 02, 2018 09:30 TAB TIMMONS MD Jan 02, 2018 23:10
[2018-01-02 11:18] VITALS: BP 95/65
[2018-01-02] MEDS ORDERED: LEVO125T5 PO (12:59)
[2018-01-02] MEDS ORDERED: RIVA20TA2 PO (13:00)
[2018-01-02] MEDS ORDERED: KETOROLAC 15 MG/ML VIAL. IV PRN (13:45)
[2018-01-02] MEDS ORDERED: PROCHLORPERAZINE 10 MG/2 ML VIAL. IV PRN (13:45)
[2018-01-02 14:25] LABS: THYROID STIM HORMONE (TSH) 7.545 uIU/mL (0.358-3.740)
--- NOTE | 2018-01-02 14:29 | RAD ---
PQRS Compliance Statement: One or more of the following individualized dose reduction techniques were utilized for this examination: 1. Automated exposure control 2. Adjustment of the mA and/or kV according to patient size 3. Use of iterative reconstruction technique CT HEAD WITHOUT CONTRAST History: HEADACHE, VOMITING Comparison: CT head without contrast, September 13, 2014. Procedure: Axial images are obtained of the head from the skull base through the vertex without IV contrast. Findings: The ventricles and sulci are normal for the patient's age. No mass-effect, midline shift, hemorrhage, extra-axial fluid collection, or obvious acute infarction is identified. Basilar cisterns are patent. Bone windows demonstrate no acute calvarial abnormality. The visualized paranasal sinuses are clear. Mastoid air cells are well aerated. IMPRESSION: No acute intracranial abnormality. Electronically signed by: Bandar Ruano MD (01/02/2018 2:26 PM) [id number]
--- NOTE | 2018-01-02 16:53 | HP ---
ADMIT DATE: 01/02/2018 HISTORY OF PRESENT ILLNESS: The patient is a 52-year-old female patient, who came to the Emergency Room complaining of right hip pain. According to her, she fell about a month ago and has had pain for about a week that has subsided and almost a week ago she started having pain, that has been progressively worse and she is now unable to walk. Her walk with a limp. She also complained of chest pain midsternal that is constant. It is not associated with any nausea, vomiting, diaphoresis, or shortness of breath, does not radiate. Associated with cough and has severe headache that started when she was given morphine in the Emergency Room after which she vomited twice. She was extensively investigated in the Emergency Room and has had lab work. Her first set of cardiac enzyme showed her troponin to be less than 0.017; however, her liver enzymes were elevated including her AST, ALT, alkaline phosphatase. Her white cell count was normal. Her D-dimer was only 0.36. She has had extensive imaging studies including x-ray of the right hip and pelvis, which showed that there is no acute pelvic fracture. Sacroiliac joints are symmetric. No fracture or dislocation of the right hip. The mineralization is normal. Soft tissues unremarkable. Her chest x-ray showed that she has a somewhat an ill-defined nodular opacity just lateral to the aortic arch in the left upper lobe. This is better delineated on prior CT scan of the chest. No pneumothorax or pleural effusion is seen. The heart size is normal. No acute osseous changes are identified. Her pelvic CT scan showed that her visualized osseous structures appear intact. There is no free fluid and no acute finding. CT of the lumbar spine without contrast showed that the vertebral bodies are aligned. There is no loss of vertebral body structure, stature. Evaluation of the central canal is limited without contrast. There is no significant central stenosis. There is moderate narrowing of the neural foramina bilaterally below the level of the exiting nerve roots. There is spondylosis on the right at L5-S1. She has CT angio of the chest, which showed there is no evidence of pulmonary embolism, mildly dilated ascending thoracic aorta. She was also found to have two pulmonary nodules, recommended a 3-month followup CT of the chest without contrast. The patient was admitted to investigate her chest pain further as well as pain management. PAST MEDICAL HISTORY: She has history of DVT and PE, hypothyroidism. She is also known to have chronic obstructive pulmonary disease for which she is on albuterol and Advair Diskus. PAST SURGICAL HISTORY: Significant for right inguinal hernia repair x 2 and C-sections x 2. ALLERGIES: She is allergic to PENICILLIN. FAMILY HISTORY: She has one brother, who is younger and healthy. Her mother is at age of 69 and father at the age of 68. The cause of their is not clear. Her father apparently at age of 68 drowning in [place]. SOCIAL HISTORY: She is , has 4 sons and 2 of her daughters in infancy, one at age of 2 months and other in . She used to work as a caregiver for an elderly lady. She used to smoke half a pack a day and she stated that she is now smoking only half a cigarette a day. She does not drink alcohol or use any recreational drugs. REVIEW OF SYSTEMS: As per history of present illness. PHYSICAL EXAMINATION: GENERAL: On examining her, she was curled up in bed, in a position, in no apparent respiratory distress. She was slightly pale, but no jaundice or cyanosis. No lymphadenopathy, no thyromegaly. No jugular venous distention. No limb edema. VITAL SIGNS: Her heart rate was 57, blood pressure was 95/65, temperature was 97.2, respiratory rate was 18 and oxygen saturation was 98% on room air. HEAD, EYES, EARS, NOSE AND THROAT: Showed normocephalic, atraumatic. NECK: Supple. HEART: Showed normal first and second heart sounds. No gallop, rub or murmur. CHEST: Clear to auscultation. No crepitation or rhonchi. ABDOMEN: Distended, soft, nontender. No guarding or rigidity. No organomegaly. All hernial orifice intact. Bowel sounds normal. NEUROLOGIC: She was very lethargic, but arousable. She responds to all questions appropriately, although continued to complain of severe headache. All her cranial nerves are grossly intact. EXTREMITIES: She moves her extremities without difficulty. LABORATORY DATA: Showed that her white cell count was 5700, hemoglobin 13, hematocrit 38, MCV 93, and platelet count 235,000. Her serum sodium was 140, potassium 3.3, chloride 104, bicarbonate 30, anion gap of 6, BUN 9, creatinine 0.9, estimated GFR was 66 mL per minute. Her glucose was 96, calcium was 8.6, magnesium was 1.9. Total bilirubin is normal. However; AST, ALT, alkaline phosphatase are all slightly elevated. Her CK was 96. First set of cardiac enzymes showed troponin to be less than 0.017. Her beta natriuretic peptide was 22. Total protein was 7.2, albumin 3.5. Serum lipase was 135. Her prothrombin time was 10.7, INR 1.1, aPTT was 28. D-dimer was 0.36. Her urinalysis showed the urine was yellow, hazy with a pH of 6, specific gravity 1.005. The urine was negative for protein, glucose, ketones, blood, nitrite and there was trace of leukocyte esterase with 0 rbc's, 1-4 wbc's, very few bacteria. Her toxic screen was negative. IMAGING STUDIES: Showed that there is no evidence of pulmonary emboli and there is no obvious fracture or dislocation of her right hip joint. Chest x-ray showed that she has 2 nodules that has been known before. ASSESSMENT AND PLAN: In summary, this is a 52-year-old female patient, who came with multiple complaints that cannot be lumped together. She has right hip pain after a fall about a month ago. She has chest pain and she has also severe headache. X-ray and CT scan of the right hip joint showed no evidence of fracture or dislocation. Chest pain is fairly atypical. The CT scan of the chest as ruled out most of the standing problems including pneumothorax, pneumonia or pericardial effusion or aortic dissection. I will arrange her to have a CT scan of the head without contrast. We will do 2 more sets of cardiac enzyme. She was already seen by the Cardiology team and they ordered an echocardiogram, the result of which is still pending at the time of this dictation. JAGRUTI GARCIA MD DR: ADY/aguilar JOB#: [id number] / [id number]
[2018-01-02] MEDS ORDERED: RIVAROXABAN 15 MG TABLET. PO SCH (17:00)
== END 2018-01-02 16:31 | disposition left against medical advice (07) | DRG 313 ==
LOC: ER 03:03 → 1 SOUTH 04:30
PROVIDERS: ADMIT Internal Medicine; ATTEND Internal Medicine
DX: R07.89 Other chest pain (principal); E03.9 Hypothyroidism, unspecified; F17.210 Nicotine dependence, cigarettes, uncomplicated; J44.9 Chronic obstructive pulmonary disease, unspecified; K72.90 Hepatic failure, unspecified without coma; M47.9 Spondylosis, unspecified; T39.95XA Adverse effect of unspecified nonopioid analgesic, antipyretic and antirheumatic, initial encounter; Z53.21 Procedure and treatment not carried out due to patient leaving prior to being seen by health care provider; Z86.711 Personal history of pulmonary embolism; Z86.718 Personal history of other venous thrombosis and embolism; Z91.14 Patient's other noncompliance with medication regimen; Z91.19 Patient's noncompliance with other medical treatment and regimen; Z98.891 History of uterine scar from previous surgery; Z79.899 Other long term (current) drug therapy; Z88.0 Allergy status to penicillin; Y92.89 Other specified places as the place of occurrence of the external cause
CPT/HCPCS: 36415; 70450; 71046; 71275; 72131; 72192; 73502; 80048; 80061; 80076; 80307; 81001; 82550; 83690; 83735; 83880; 84443; 84484; 85025; 85379; 85610; 85730; 93005; 93306; J0780; J1885; J2270; J2405; J7120; Q9967; G0479

== ENCOUNTER 2018-07-16 00:37 | Emergency (ER) | payer SELFPAY ==
[~2018-07-16] VITALS: Ht 162.6 cm; Wt 63.0 kg
[~2018-07-16 00:37] MED LIST changes: +ALBU2.5V8 IH; -ALBU6.7H IH; +RIVA20TA2 PO
--- NOTE | 2018-07-16 00:57 | ED.ADGEN ---
Past History Past Medical History: Arthritis, Bronchitis, COPD, Hypothyroid, Other Past Surgical History: , Other Smoking: Cigarettes, Less than 1pk/day Alcohol Use: None Drug Use: None Adult General Chief Complaint Chief Complaint ".. I ve been sick.. maybe two weeks.. I went to [facility] on .. she said to take over te counter meds... but I have not gotten any better.. now my chest hurts all the time.. and coughing all the time..." HPI HPI Patient is a 53 year old female who presents with above hx and complaints chest pain and cough. Pt. has continue to smoke. Pt. denies specific ill contacts or travel. Pt. has significant medical hx of DVT, pulmonary embolisms, hypo thyroidism, COPD, and bronchitis. Pt. normally follows at [facility] for care. Review of Systems Review of Systems Constitutional: subjective hx of fever or chills [] Eyes: Denies change in visual acuity, redness, or eye pain [] HENT: Hx. of nasal congestion Respiratory: Hx of cough and wheezing. Cardiovascular: No additional information not addressed in HPI [] GI: Denies abdominal pain, nausea, vomiting, bloody stools or diarrhea [] : Denies dysuria or hematuria [] Musculoskeletal: Denies back pain or joint pain [] Integument: Denies rash or skin lesions [] Neurologic: Denies headache, focal weakness or sensory changes [] Endocrine: Denies polyuria or polydipsia [] All other systems were reviewed and found to be within normal limits, except as documented in this note. Family History Family History One brother healthy. Mother 69, Father at 68. Current Medications Current Medications Current Medications Medications (Trade) Dose Ordered Sig/Cristina Start Time Stop Time Status Last Admin Dose Admin Albuterol Sulfate (Ventolin Hfa Inhaler) 2 puff 1X ONCE 07/16/18 02:30 07/16/18 02:31 DC 07/16/18 02:17 2 PUFF Albuterol/ Ipratropium (Duoneb) 3 ml 1X ONCE 07/16/18 01:30 07/16/18 01:31 DC 07/16/18 01:25 3 ML Azithromycin (Zithromax) 500 mg 1X ONCE 07/16/18 01:30 07/16/18 01:31 DC 07/16/18 01:32 500 MG Ceftriaxone Sodium 1 gm/ Sodium Chloride 50 ml @ 100 mls/hr 1X ONCE 07/16/18 01:15 07/16/18 02:43 DC Lactated Ringer's 1,000 ml @ 1,000 mls/hr Q1H 07/16/18 01:30 07/16/18 02:29 DC 07/16/18 01:32 1,000 MLS/HR Methylprednisolone Sodium Succinate (SOLU-Medrol 125MG VIAL) 125 mg 1X ONCE 07/16/18 01:30 07/16/18 01:31 DC 07/16/18 01:32 125 MG Allergies Allergies Allergies Coded Allergies Type Severity Reaction Last Updated Verified Penicillins Allergy Severe TONGUE SWELLING 12/27/13 Yes morphine Adverse Reaction Unknown VOMITING, SOB 07/16/18 Yes Physical Exam Physical Exam Constitutional: no acute distress, non-toxic appearance. [] HENT: Normocephalic, atraumatic, bilateral external ears normal, oropharynx moist, no oral exudates, nose normal. Poor dentition Eyes: PERRLA, EOMI, conjunctiva normal, no discharge. [] Neck: Normal range of motion, no tenderness, supple, no stridor. [] Cardiovascular:Heart rate regular rhythm, no murmur [] Lungs & Thorax: Bilateral breath sounds equal at apexes with scattered wheezes on auscultation [] Abdomen: Bowel sounds normal, soft, no tenderness, no masses, no pulsatile masses. [] Old surgical scars. Skin: Warm, dry, no erythema, no rash. [] Back: No tenderness, no CVA tenderness. [] Extremities: No tenderness, no cyanosis, no clubbing, ROM intact, no edema. No cording appreciated. Neurologic: Alert and oriented X 3, normal motor function, normal sensory function, no focal deficits noted. [] Psychologic: Affect normal, judgement normal, mood normal. [] Current Patient Data Vital Signs Vital Signs Date Time Temp Pulse Resp B/P (MAP) Pulse Ox O2 Delivery O2 Flow Rate FiO2 07/16/18 02:18 97 Room Air 07/16/18 01:40 60 16 118/70 (86) 07/16/18 00:40 98.0 Lab Results Laboratory Tests Test 07/16/18 00:58 07/16/18 02:10 White Blood Count 7.1 x10^3/uL (4.0-11.0) Red Blood Count 4.67 x10^6/uL (3.50-5.40) Hemoglobin 14.9 g/dL (12.0-15.5) Hematocrit 44.3 % (36.0-47.0) Mean Corpuscular Volume 95 fL (79-100) Mean Corpuscular Hemoglobin 32 pg (25-35) Mean Corpuscular Hemoglobin Concent 34 g/dL (31-37) Red Cell Distribution Width 13.5 % (11.5-14.5) Platelet Count 242 x10^3/uL (140-400) Neutrophils (%) (Auto) 46 % (31-73) Lymphocytes (%) (Auto) 43 % (24-48) Monocytes (%) (Auto) 7 % (0-9) Eosinophils (%) (Auto) 3 % (0-3) Basophils (%) (Auto) 1 % (0-3) Neutrophils # (Auto) 3.3 x10^3uL (1.8-7.7) Lymphocytes # (Auto) 3.0 x10^3/uL (1.0-4.8) Monocytes # (Auto) 0.5 x10^3/uL (0.0-1.1) Eosinophils # (Auto) 0.2 x10^3/uL (0.0-0.7) Basophils # (Auto) 0.1 x10^3/uL (0.0-0.2) Prothrombin Time 10.1 SEC (9.4-11.4) Prothrombin Time INR 1.0 (0.9-1.1) PTT 29 SEC (23-33) D-Dimer (Felipa) 0.21 mg/L (0.00-0.50) Sodium Level 142 mmol/L (136-145) Potassium Level 4.0 mmol/L (3.5-5.1) Chloride Level 105 mmol/L (98-107) Carbon Dioxide Level 32 mmol/L (21-32) Anion Gap 5 (6-14) L Blood Urea Nitrogen 15 mg/dL (7-20) Creatinine 0.9 mg/dL (0.6-1.0) Estimated GFR (Cockcroft-Gault) 65.5 Glucose Level 90 mg/dL (70-99) Calcium Level 9.0 mg/dL (8.5-10.1) Magnesium Level 1.8 mg/dL (1.8-2.4) Total Bilirubin 0.3 mg/dL (0.2-1.0) Direct Bilirubin 0.1 mg/dL (0.0-0.2) Aspartate Amino Transferase (AST) 73 U/L (15-37) H Alanine Aminotransferase (ALT) 121 U/L (14-59) H Alkaline Phosphatase 109 U/L (46-116) Creatine Kinase 99 U/L (26-192) Troponin I Quantitative < 0.017 ng/mL (0-0.055) YF-Cwb-G-Type Natriuretic Peptide 27 pg/mL (0-124) Total Protein 7.6 g/dL (6.4-8.2) Albumin 3.4 g/dL (3.4-5.0) Lipase 212 U/L (73-393) Urine Collection Type Unknown Urine Color Yellow Urine Clarity Hazy Urine pH 6.0 Urine Specific [place] 1.020 Urine Protein Neg (NEG-TRACE) Urine Glucose (UA) Neg mg/dL (NEG) Urine Ketones (Stick) Neg mg/dL (NEG) Urine Blood Neg (NEG) Urine Nitrite Pos (NEG) Urine Bilirubin Neg (NEG) Urine Urobilinogen Dipstick 1 mg/dL (0.2 mg/dL) Urine Leukocyte Esterase Small (NEG) Urine RBC 0 /HPF (0-2) Urine WBC 5-10 /HPF (0-4) Urine Squamous Epithelial Cells Few /LPF Urine Bacteria Many /HPF (0-FEW) EKG EKG My interpretation of EKG shows a sinus rhythm at 64 beats per minute. Slightly prolonged AL interval. Prophylaxis. No findings acute STEMI of contralateral changes. There is some baseline artifact.[] Radiology/Procedures Radiology/Procedures My interpretation of chest x-ray shows no acute cardiopulmonary changes from last chest x-ray on file. Does have findings of some chronic COPD changes.[] Course & Med Decision Making Course & Med Decision Making Pertinent Labs and Imaging studies reviewed. (See chart for details) Patient is to stop smoking. Patient follow-up primary care. Patient uses MDI 2 puffs 4 times a day. Patient take prednisone 50 mg day for 5 days. Patient taking Zithromax 250 mg daily for 5 days. Return if any concerns. [] Final Impression Final Impression 1. Bronchitis 2. COPD exacerbation 3. Tobacco Use[] 4. Elevated AST/ALT 73/121 Dragon Disclaimer Dragon Disclaimer This electronic medical record was generated, in whole or in part, using a voice recognition dictation system. Discharge Summary Visit Information Final Diagnosis Problems Medical Problems: (1) Bronchitis Status: Acute (2) COPD (chronic obstructive pulmonary disease) with acute bronchitis Status: Acute Brief Hospital Course Allergies Allergies Coded Allergies Type Severity Reaction Last Updated Verified Penicillins Allergy Severe TONGUE SWELLING 12/27/13 Yes morphine Adverse Reaction Unknown VOMITING, SOB 07/16/18 Yes Vital Signs Vital Signs Date Time Temp Pulse Resp B/P (MAP) Pulse Ox O2 Delivery O2 Flow Rate FiO2 07/16/18 02:18 97 Room Air 07/16/18 01:40 60 16 118/70 (86) 07/16/18 00:40 98.0 Lab Results Laboratory Tests Test 07/16/18 00:58 07/16/18 02:10 White Blood Count 7.1 x10^3/uL (4.0-11.0) Red Blood Count 4.67 x10^6/uL (3.50-5.40) Hemoglobin 14.9 g/dL (12.0-15.5) Hematocrit 44.3 % (36.0-47.0) Mean Corpuscular Volume 95 fL (79-100) Mean Corpuscular Hemoglobin 32 pg (25-35) Mean Corpuscular Hemoglobin Concent 34 g/dL (31-37) Red Cell Distribution Width 13.5 % (11.5-14.5) Platelet Count 242 x10^3/uL (140-400) Neutrophils (%) (Auto) 46 % (31-73) Lymphocytes (%) (Auto) 43 % (24-48) Monocytes (%) (Auto) 7 % (0-9) Eosinophils (%) (Auto) 3 % (0-3) Basophils (%) (Auto) 1 % (0-3) Neutrophils # (Auto) 3.3 x10^3uL (1.8-7.7) Lymphocytes # (Auto) 3.0 x10^3/uL (1.0-4.8) Monocytes # (Auto) 0.5 x10^3/uL (0.0-1.1) Eosinophils # (Auto) 0.2 x10^3/uL (0.0-0.7) Basophils # (Auto) 0.1 x10^3/uL (0.0-0.2) Prothrombin Time 10.1 SEC (9.4-11.4) Prothromb Time International Ratio 1.0 (0.9-1.1) Activated Partial Thromboplast Time 29 SEC (23-33) D-Dimer (Felipa) 0.21 mg/L (0.00-0.50) Sodium Level 142 mmol/L (136-145) Potassium Level 4.0 mmol/L (3.5-5.1) Chloride Level 105 mmol/L (98-107) Carbon Dioxide Level 32 mmol/L (21-32) Anion Gap 5 (6-14) Blood Urea Nitrogen 15 mg/dL (7-20) Creatinine 0.9 mg/dL (0.6-1.0) Estimated GFR (Cockcroft-Gault) 65.5 Glucose Level 90 mg/dL (70-99) Calcium Level 9.0 mg/dL (8.5-10.1) Magnesium Level 1.8 mg/dL (1.8-2.4) Total Bilirubin 0.3 mg/dL (0.2-1.0) Direct Bilirubin 0.1 mg/dL (0.0-0.2) Aspartate Amino Transf (AST/SGOT) 73 U/L (15-37) Alanine Aminotransferase (ALT/SGPT) 121 U/L (14-59) Alkaline Phosphatase 109 U/L (46-116) Creatine Kinase 99 U/L (26-192) Troponin I Quantitative < 0.017 ng/mL (0-0.055) US-Wmm-U-Type Natriuretic Peptide 27 pg/mL (0-124) Total Protein 7.6 g/dL (6.4-8.2) Albumin 3.4 g/dL (3.4-5.0) Lipase 212 U/L (73-393) Urine Collection Type Unknown Urine Color Yellow Urine Clarity Hazy Urine pH 6.0 Urine Specific [place] 1.020 Urine Protein Neg (NEG-TRACE) Urine Glucose (UA) Neg mg/dL (NEG) Urine Ketones (Stick) Neg mg/dL (NEG) Urine Blood Neg (NEG) Urine Nitrite Pos (NEG) Urine Bilirubin Neg (NEG) Urine Urobilinogen Dipstick 1 mg/dL (0.2 mg/dL) Urine Leukocyte Esterase Small (NEG) Urine RBC 0 /HPF (0-2) Urine WBC 5-10 /HPF (0-4) Urine Squamous Epithelial Cells Few /LPF Urine Bacteria Many /HPF (0-FEW) Brief Hospital Course Ms. Navarro is a 53 old female who presented with bronchitis and COPD exacerbation. Discharge Information Condition at Discharge: Improved, Stable Disposition/Orders: D/C to Home Dischare Medications Current Medications Lactated Ringer's 1,000 ml @ 1,000 mls/hr Q1H IV Last administered on 07/16/18at 01:32; Admin Dose 1,000 MLS/HR; Start 07/16/18 at 01:30; Stop 07/16/18 at 02:29; Status DC Methylprednisolone Sodium Succinate (SOLU-Medrol 125MG VIAL) 125 mg 1X ONCE IV Last administered on 07/16/18at 01:32; Admin Dose 125 MG; Start 07/16/18 at 01:30; Stop 07/16/18 at 01:31; Status DC Albuterol/ Ipratropium (Duoneb) 3 ml 1X ONCE NEB Last administered on 07/16/18at 01:25; Admin Dose 3 ML; Start 07/16/18 at 01:30; Stop 07/16/18 at 01:31; Status DC Azithromycin (Zithromax) 500 mg 1X ONCE PO Last administered on 07/16/18at 01:32; Admin Dose 500 MG; Start 07/16/18 at 01:30; Stop 07/16/18 at 01:31; Status DC Ceftriaxone Sodium 1 gm/ Sodium Chloride 50 ml @ 100 mls/hr 1X ONCE IV ; Start 07/16/18 at 01:15; Stop 07/16/18 at 02:43; Status DC Albuterol Sulfate (Ventolin Hfa Inhaler) 2 puff 1X ONCE INH Last administered on 07/16/18at 02:17; Admin Dose 2 PUFF; Start 07/16/18 at 02:30; Stop 07/16/18 at 02:31; Status DC Active Scripts Active Zithromax (Azithromycin) 250 Mg Tablet 250 Mg PO DAILY 5 Days Prednisone 50 Mg Tablet 50 Mg PO DAILY 5 Days Prednisone 50 Mg Tablet 50 Mg PO DAILY 5 Days Zithromax (Azithromycin) 250 Mg Tablet 250 Mg PO DAILY 5 Days Reported Xarelto (Rivaroxaban) 20 Mg Tablet 20 Mg PO Levothyroxine Sodium 125 Mcg Tablet 1 Tab PO DAILY Advair 250-50 Diskus (Fluticasone/Salmeterol) 1 Each Disk.w.dev 1 Each IH DAILY Proventil Hfa Inhaler (Albuterol Sulfate) 6.7 Gm Hfa.aer.ad 2 Puff IH Q4HRS PRN Advair 100-50 Diskus (Fluticasone/Salmeterol) 1 Each Disk.w.dev 1 Puff IH BID 2 times daily Ricarda Disclaimer This chart was dictated in whole or in part using Voice Recognition software in a busy, high-work load, and often noisy Emergency Department environment. It may contain unintended and wholly unrecognized errors or omissions. NENITA HUTCHINS MD July 16, 2018 00:57
[2018-07-16 01:19] LABS: BASO # 0.1 x10^3/uL (0.0-0.2); BASO % 1 % (0-3); EOS # 0.2 x10^3/uL (0.0-0.7); EOS % 3 % (0-3); HEMATOCRIT 44.3 % (36.0-47.0); HEMOGLOBIN 14.9 g/dL (12.0-15.5); LYMPH % 43 % (24-48); MEAN CORPUSCULAR HEMOGLOBIN 32 pg (25-35); MEAN CORPUSCULAR HGB CONC 34 g/dL (31-37); MEAN CORPUSCULAR VOLUME 95 fL (79-100); MONO # 0.5 x10^3/uL (0.0-1.1); MONO % 7 % (0-9); NEUT # 3.3 x10^3uL (1.8-7.7); NEUT % 46 % (31-73); PLATELET COUNT 242 x10^3/uL (140-400); RED BLOOD COUNT 4.67 x10^6/uL (3.50-5.40); RED CELL DISTRIBUTION WIDTH 13.5 % (11.5-14.5); WHITE BLOOD COUNT 7.1 x10^3/uL (4.0-11.0)
[2018-07-16] MEDS ORDERED: IPRATRPIUM/ALBUTEROL 0.5/2.5MG 3 ML NEBU. NEB ONE (01:30)
[2018-07-16] MEDS ORDERED: AZITHROMYCIN 250 MG TABLET. PO ONE (01:30)
[2018-07-16] MEDS ORDERED: IV RINGERS SOLUTION,LACTATED 1,000 ML IV SCH (01:30)
[2018-07-16] MEDS ORDERED: methylPREDNISolone SOD SUCC PF 125 MG/2 ML VIAL. IV ONE (01:30)
[2018-07-16 01:40] VITALS: BP 118/70
[2018-07-16 01:44] LABS: ALBUMIN 3.4 g/dL (3.4-5.0); CREATININE 0.9 mg/dL (0.6-1.0); DIRECT BILIRUBIN 0.1 mg/dL (0.0-0.2); GFR 65.5; MAGNESIUM 1.8 mg/dL (1.8-2.4); TOTAL BILIRUBIN 0.3 mg/dL (0.2-1.0); TOTAL PROTEIN 7.6 g/dL (6.4-8.2)
[2018-07-16] MEDS ORDERED: PRED50TA PO ×2 (02:07→02:15)
[2018-07-16] MEDS ORDERED: AZIT250T PO ×2 (02:07→02:15)
[2018-07-16] MEDS ORDERED: ALBUTEROL SULFATE 8GM INHALER. INH ONE (02:30)
[2018-07-16 02:31] LABS: BARBITURATES NEG (NEG); BENZODIAZEPINES NEG (NEG); CANNABINOIDS NEG (NEG); COCAINE NEG (NEG); METHADONE NEG (NEG); OPIATES NEG (NEG); PHENCYCLIDINE NEG (NEG)
[2018-07-16 02:50] LABS: BILIRUBIN,URINE NEG (NEG); CLARITY,URINE HAZY; COLOR,URINE YELLOW; GLUCOSE,URINE NEG (NEG); NITRITE,URINE POS (NEG); UROBILINOGEN,URINE 1 mg/dL (0.2 mg/dL)
[2018-07-16 02:51] LABS: BACTERIA,URINE MANY /HPF (0-FEW); RBC,URINE 0 /HPF (0-2); SQUAMOUS EPITHELIAL CELL,UR FEW /LPF
[2018-07-16 02:54] LABS: AMPHETAMINE/METHAMPHETAMINE NEG (NEG)
[2018-07-16] MEDS ORDERED: ACET325T9 PO (07:41)
[2018-07-16] MEDS ORDERED: ORPH-16 PO (07:41)
--- NOTE | 2018-07-16 08:33 | RAD ---
Chest, PA and Lateral: Technique: PA and lateral views of the chest were obtained. History: Chest pain. Comparison: 01/02/2018. Findings: The heart and pulmonary vasculature appear within normal limits. The lungs are clear. The pleural margins are clear. Impression: No acute chest process is seen. Electronically signed by: Flaco Crowley MD (07/16/2018 8:31 AM) [place] [id number]
[2018-07-16 13:12] LABS: THYROID STIM HORMONE (TSH) 91.687 uIU/mL (0.358-3.740)
--- NOTE | 2018-07-16 17:05 | EKG ---
[address] [address] Test Date: 2018-07-16 Test Time: 00:51:43 Pat Name: AMARI GREGG Department: Room: Gender: F Professor Of Education: : 1965 Requested By: NENITA HUTCHINS Order Number: [id number] Reading MD: Dino Casillas Measurements Intervals [place] Rate: 64 P: 36 NM: 238 QRS: -18 QRSD: 92 T: 25 QT: 430 QTc: 443 Interpretive Statements SINUS RHYTHM PROLONGED NM INTERVAL LEFTWARD AXIS Electronically Signed On 08-10-2018 11:36:41 CDT by Dino Casillas
== END 2018-07-16 02:29 | disposition home or self-care (01) ==
LOC: ER 00:41
DX: J44.1 Chronic obstructive pulmonary disease with (acute) exacerbation (principal); J20.9 Acute bronchitis, unspecified; J44.0 Chronic obstructive pulmonary disease with (acute) lower respiratory infection; R74.0 Nonspecific elevation of levels of transaminase and lactic acid dehydrogenase [LDH]; M19.90 Unspecified osteoarthritis, unspecified site; J44.9 Chronic obstructive pulmonary disease, unspecified; E03.9 Hypothyroidism, unspecified; F17.210 Nicotine dependence, cigarettes, uncomplicated; Z88.0 Allergy status to penicillin; Z88.5 Allergy status to narcotic agent
CPT/HCPCS: 36415; 71046; 80048; 80061; 80076; 80307; 81001; 82550; 83690; 83735; 83880; 84443; 84484; 85025; 85379; 85610; 85730; 87086; 93005; 94640; 96374; 99285; J0456; J2930; J7120; J7613; J7620; 87186; 96361

== ENCOUNTER 2018-07-16 06:35 | Emergency (ER) | payer SELFPAY ==
[~2018-07-16] VITALS: Ht 162.6 cm; Wt 63.0 kg
[~2018-07-16 06:35] MED LIST changes: +AZIT250T PO; +PRED50TA PO
[2018-07-16 07:07] VITALS: BP 120/83
--- NOTE | 2018-07-16 07:22 | PHYS DOC ---
Past History Past Medical History: Arthritis, Bronchitis, COPD, Hypothyroid, Other Past Surgical History: , Other Smoking: Cigarettes, Less than 1pk/day Alcohol Use: None Drug Use: None Adult General Chief Complaint Chief Complaint: MECHANICAL FALL HPI HPI Patient is a 53-year-old female presents complaining of back pain after falling down several steps in her basement landing on her back. Denies any loss of bowel or bladder control. Denies any head injury. Is able to walk. Increased pain with movement. This happened approximately 30 minutes prior to arrival. Patient is on blood thinners for previous DVT/PE. She was admitted to the emergency department earlier today due to a different pain complaint and found to have bronchitis and was given IV fluids, antibiotics, and steroids. She reports feeling "woozy" after the medications administered. Reports that the pain is severe. There is no radiation of the discomfort.[] Review of Systems Review of Systems Constitutional: Denies fever or chills [] Eyes: Denies change in visual acuity, redness, or eye pain [] HENT: Denies nasal congestion or sore throat [] Respiratory: Denies cough or shortness of breath [] Cardiovascular: No chest pain or palpitations[] GI: Denies abdominal pain, nausea, vomiting, bloody stools or diarrhea [] : Denies dysuria or hematuria [] Musculoskeletal: See history of present illness, denies any other joint pain[] Integument: Denies rash or skin lesions [] Neurologic: Denies headache, focal weakness or sensory changes [] Endocrine: Denies polyuria or polydipsia [] All other systems were reviewed and found to be within normal limits, except as documented in this note. Allergies Allergies Allergies Coded Allergies Type Severity Reaction Last Updated Verified Penicillins Allergy Severe TONGUE SWELLING 12/27/13 Yes morphine Adverse Reaction Unknown VOMITING, SOB 07/16/18 Yes Physical Exam Physical Exam Constitutional: Well developed, well nourished, mild distress, holding her left low back, non-toxic appearance. [] HENT: Normocephalic, atraumatic, bilateral external ears normal, oropharynx moist, no oral exudates, nose normal. [] Eyes: PERRLA, EOMI, conjunctiva normal, no discharge. [] Neck: Normal range of motion, no tenderness, supple, no stridor. [] Cardiovascular:Heart rate regular rhythm, no murmur [] Lungs & Thorax: Bilateral breath sounds clear to auscultation [] Abdomen: Bowel sounds normal, soft, no tenderness, no masses, no pulsatile masses. [] Skin: Warm, dry, no erythema, no rash. [] Back: Tenderness in the lower lumbar paraspinal musculature. There is no midline tenderness. No step-off, no crepitus. no CVA tenderness. [] Extremities: No tenderness, no cyanosis, no clubbing, ROM intact, no edema. [] Neurologic: Alert and oriented X 3, normal motor function, normal sensory function, no focal deficits noted. Normal gait[] Psychologic: Affect normal, judgement normal, mood normal. [] EKG EKG [] Radiology/Procedures Radiology/Procedures Lumbar spine x-ray does not show any acute features, no fracture, no subluxation[] Course & Med Decision Making Course & Med Decision Making Pertinent Labs and Imaging studies reviewed. (See chart for details) Medical decision making: There is no evidence of a fracture, subluxation, nor neurologic impairment. Believe this to be more of a contusion and strain mechanism. We will treat with outpatient pain medication, cognizant that the patient is on blood thinners. Review of medications given during her previous emergency department visit, no sedating medicines such as antiemetics or narcotics were administered. Uncertain as to what would cause her to feel "woozy" as she was walking down the steps other than lack of sleep.[] Dragon Disclaimer Dragon Disclaimer This electronic medical record was generated, in whole or in part, using a voice recognition dictation system. Departure Departure: Impression: Primary Impression: Back pain Additional Impression: Contusion of back Disposition: 01 HOME, SELF-CARE Condition: IMPROVED Referrals: PCP,NO (PCP) Patient Instructions: Back Exercises, Generic, SportsMed, Back Pain, Adult, Contusion Additional Instructions: Follow-up with your regular doctor in 2 days. Apply warm compresses for 15 minutes at a time, at least 4 times a day to the area that is hurting. Return to the ER if loss of bowel or bladder control or any other concerns. Scripts Acetaminophen (TYLENOL) 325 Mg Tablet 1-2 TAB PO QID for pain, #60 TAB 0 Refills Prov: ANDREW QUINTERO DO 5/13/19 Orphenadrine Citrate (ORPHENADRINE CITRATE) 100 Mg Tablet.er 100 MG PO BID for BACK PAIN, #20 TAB.SR Prov: ANDREW QUINTERO DO 07/16/18 Problem Qualifiers Primary Impression: Back pain Back pain location: low back pain Chronicity: acute Back pain laterality: left Sciatica presence: without sciatica Qualified Codes: M54.5 - Low back pain Additional Impression: Contusion of back Encounter type: initial encounter Laterality: left Qualified Codes: S20.222A - Contusion of left back wall of thorax, initial encounter ANDREW QUINTERO DO July 16, 2018 07:22
[2018-07-16] MEDS: ACETAMINOPHEN 500 MG TABLET PO ONE (07:25)
[2018-07-16] MEDS ORDERED: ORPH-16 PO (07:41)
[2018-07-16] MEDS ORDERED: ACET325T9 PO (07:41)
--- NOTE | 2018-07-16 08:32 | RAD ---
LUMBAR SPINE 2-3V History: Low back pain, fall Comparison: CT lumbar spine exam 01/02/2018 Findings: 3 views of the lumbar spine are submitted. Lumbar vertebral body stature is overall maintained. No acute osseous normality is identified by radiographs. Right L5 spondylolysis is better seen on previous CT. There is mild degenerative disc disease at L4-5. There is a large gallstone. Impression: 1. No acute osseous abnormality is identified by radiographs. Right L5 spondylolysis is better seen on CT. 2. There is large gallstone. Electronically signed by: Ney Crespo MD (07/16/2018 8:29 AM) [id number]
== END 2018-07-16 07:50 | disposition home or self-care (01) ==
LOC: ER 06:35
DX: S30.0XXA Contusion of lower back and pelvis, initial encounter (principal); M19.90 Unspecified osteoarthritis, unspecified site; J44.9 Chronic obstructive pulmonary disease, unspecified; E03.9 Hypothyroidism, unspecified; F17.210 Nicotine dependence, cigarettes, uncomplicated; Z88.0 Allergy status to penicillin; Z88.5 Allergy status to narcotic agent; W10.8XXA Fall (on) (from) other stairs and steps, initial encounter; Y93.89 Activity, other specified; Y92.89 Other specified places as the place of occurrence of the external cause; Y99.8 Other external cause status
CPT/HCPCS: 72100; 99284

== ENCOUNTER 2018-10-20 23:33 | Emergency (ER) | payer SELFPAY ==
[~2018-10-20] VITALS: Ht 162.6 cm; Wt 57.6 kg
[~2018-10-20 23:33] MED LIST changes: +ACET325T9 PO; +ORPH-16 PO
[2018-10-20 23:56] VITALS: BP 100/64
--- NOTE | 2018-10-21 00:19 | PHYS DOC ---
Past History Past Medical History: Arthritis, Bronchitis, COPD, Hypothyroid, Other Past Surgical History: , Other Smoking: Cigarettes, Less than 1pk/day Alcohol Use: None Drug Use: None Adult General Chief Complaint Chief Complaint: MECHANICAL FALL HPI HPI Patient is a [age] year old [sex] who presents with [] Review of Systems Review of Systems Constitutional: Denies fever or chills [] Eyes: Denies change in visual acuity, redness, or eye pain [] HENT: Denies nasal congestion or sore throat [] Respiratory: Denies cough or shortness of breath [] Cardiovascular: No additional information not addressed in HPI [] GI: Denies abdominal pain, nausea, vomiting, bloody stools or diarrhea [] : Denies dysuria or hematuria [] Musculoskeletal: Denies back pain or joint pain [] Integument: Denies rash or skin lesions [] Neurologic: Denies headache, focal weakness or sensory changes [] Endocrine: Denies polyuria or polydipsia [] All other systems were reviewed and found to be within normal limits, except as documented in this note. Allergies Allergies Allergies Coded Allergies Type Severity Reaction Last Updated Verified Penicillins Allergy Severe TONGUE SWELLING 12/27/13 Yes morphine Adverse Reaction Unknown VOMITING, SOB 07/16/18 Yes Physical Exam Physical Exam Constitutional: Well developed, well nourished, no acute distress, non-toxic appearance. [] HENT: Normocephalic, atraumatic, bilateral external ears normal, oropharynx moist, no oral exudates, nose normal. [] Eyes: PERRLA, EOMI, conjunctiva normal, no discharge. [] Neck: Normal range of motion, no tenderness, supple, no stridor. [] Cardiovascular:Heart rate regular rhythm, no murmur [] Lungs & Thorax: Bilateral breath sounds clear to auscultation [] Abdomen: Bowel sounds normal, soft, no tenderness, no masses, no pulsatile masses. [] Skin: Warm, dry, no erythema, no rash. [] Back: No tenderness, no CVA tenderness. [] Extremities: No tenderness, no cyanosis, no clubbing, ROM intact, no edema. [] Neurologic: Alert and oriented X 3, normal motor function, normal sensory function, no focal deficits noted. [] Psychologic: Affect normal, judgement normal, mood normal. [] EKG EKG [] Radiology/Procedures Radiology/Procedures [] Course & Med Decision Making Course & Med Decision Making Pertinent Labs and Imaging studies reviewed. (See chart for details) [] Dragon Disclaimer Dragon Disclaimer This electronic medical record was generated, in whole or in part, using a voice recognition dictation system. Departure Departure: Impression: Primary Impression: Contusion of right hand, initial encounter Disposition: HOME, SELF-CARE Condition: STABLE Referrals: PCP,NO (PCP) Patient Instructions: Hand Contusion, [id number] HAYLEY KAUFMAN DO Oct 21, 2018 00:19
--- NOTE | 2018-10-21 00:25 | PHYS DOC ---
Past History Past Medical History: Arthritis, Bronchitis, COPD, Hypothyroid, Other Past Surgical History: , Other Smoking: Cigarettes, Less than 1pk/day Alcohol Use: None Drug Use: None Adult General Chief Complaint Chief Complaint: MECHANICAL FALL HPI HPI Please disregard previous note on the same day about this patient by myself, Dr. Jose Elias Kaufman. 53-year-old female presents with right hand and wrist pain. The patient was wa lking into her house when she tripped and fell backwards. She reached out her right hand to catch herself and hyperextended her hand. She had immediate pain. The pain continued after she got up off of the ground and waited several minutes. She is concerned there might be broken so she came to the emergency room. It is painful to flex all of her fingers as well as flexing and extending her wrist. She denies any other injuries. Review of Systems Review of Systems Constitutional: Denies fever or chills [] Eyes: Denies change in visual acuity, redness, or eye pain [] HENT: Denies nasal congestion or sore throat [] Respiratory: Denies cough or shortness of breath [] Cardiovascular: No additional information not addressed in HPI [] GI: Denies abdominal pain, nausea, vomiting, bloody stools or diarrhea [] : Denies dysuria or hematuria [] Musculoskeletal: Right wrist and hand pain[] Integument: Denies rash or skin lesions [] Neurologic: Denies headache, focal weakness or sensory changes [] Endocrine: Denies polyuria or polydipsia [] All other systems were reviewed and found to be within normal limits, except as documented in this note. Allergies Allergies Allergies Coded Allergies Type Severity Reaction Last Updated Verified Penicillins Allergy Severe TONGUE SWELLING 12/27/13 Yes morphine Adverse Reaction Unknown VOMITING, SOB 07/16/18 Yes Physical Exam Physical Exam Constitutional: Well developed, well nourished, no acute distress, non-toxic appearance. [] HENT: Normocephalic, atraumatic, bilateral external ears normal, oropharynx moist, no oral exudates, nose normal. [] Eyes: PERRLA, EOMI, conjunctiva normal, no discharge. [] Neck: Normal range of motion, no tenderness, supple, no stridor. [] Cardiovascular:Heart rate regular rhythm, no murmur [] Lungs & Thorax: Bilateral breath sounds clear to auscultation [] Abdomen: Bowel sounds normal, soft, no tenderness, no masses, no pulsatile masses. [] Skin: Warm, dry, no erythema, no rash. [] Back: No tenderness, no CVA tenderness. [] Extremities: Tenderness over the metatarsal carpals and carpals of the right hand. No obvious deformity, ecchymosis, or swelling. Neurovascularly intact.[] Neurologic: Alert and oriented X 3, normal motor function, normal sensory function, no focal deficits noted. [] Psychologic: Affect normal, judgement normal, mood normal. [] EKG EKG [] Radiology/Procedures Radiology/Procedures [] Impressions: Preliminary interpretation right hand and wrist: No acute fracture or disloc ation is seen. Course & Med Decision Making Course & Med Decision Making Pertinent Labs and Imaging studies reviewed. (See chart for details) The patient's x-rays are negative for fracture or dislocation she has a hand contusion. I have advised supportive care with ice, rest and ibuprofen. She is stable for discharge at this time. [] Dragon Disclaimer Dragon Disclaimer This electronic medical record was generated, in whole or in part, using a voice recognition dictation system. Departure Departure: Impression: Primary Impression: Contusion of right hand, initial encounter Disposition: 01 HOME, SELF-CARE Condition: STABLE Referrals: PCP,LOULOU (PCP) Patient Instructions: Hand Contusion, [id number] JOSE ELIAS KAUFMAN DO Oct 21, 2018 00:25
--- NOTE | 2018-10-21 00:41 | RAD ---
EXAM: 1. HAND RIGHT 3V, 2. WRIST 3V RIGHT. HISTORY: Fall with right hand and wrist injury. COMPARISON: None. FINDINGS: No fractures are identified throughout. An ossicle along the radial aspect of the first interphalangeal joint is consistent with a chronically fractured osteophyte. 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 Other joint spaces and alignment are maintained. There is soft tissue swelling dorsally at the wrist. IMPRESSION: 1. No fracture. Soft tissue swelling dorsally at the wrist. Electronically signed by: Nataly Márquez MD (10/21/2018 12:38 AM) [id number]
== END 2018-10-21 00:35 | disposition home or self-care (01) ==
LOC: ER 23:33
DX: S60.221A Contusion of right hand, initial encounter (principal); M19.90 Unspecified osteoarthritis, unspecified site; J44.9 Chronic obstructive pulmonary disease, unspecified; E03.9 Hypothyroidism, unspecified; F17.210 Nicotine dependence, cigarettes, uncomplicated; Z88.5 Allergy status to narcotic agent; Z88.0 Allergy status to penicillin; W01.0XXA Fall on same level from slipping, tripping and stumbling without subsequent striking against object, initial encounter; Y93.89 Activity, other specified; Y92.098 Other place in other non-institutional residence as the place of occurrence of the external cause; Y99.8 Other external cause status
CPT/HCPCS: 73110; 73130; 99284

== ENCOUNTER → 2019-02-25 | Outpatient (CLI) | payer OTHER ==
--- NOTE | 2019-02-28 15:36 | RAD ---
DATE: 02/25/2019. EXAM: DIGITAL SCREEN BILAT W/CAD. HISTORY: Routine mammographic screening. COMPARISON: 09/22/2015. This study was interpreted with the benefit of Computerized Aided Detection (CAD). FINDINGS: Breast Density: HETERO The breast parenchyma is heterogenously dense, which could reduce sensitivity of mammography. Breast parenchyma level C.. There are no suspicious masses, microcalcifications or architectural distortion. Scattered and vascular calcifications are benign. The parenchymal pattern is stable. BI-RADS CATEGORY: 2 BENIGN FINDING(S). RECOMMENDED FOLLOW-UP: 12M 12 MONTH FOLLOW-UP. PQRS compliance statement: Patient information was entered into a reminder system with a target due date 02/26/2020 for the next mammogram. Mammography is a sensitive method for finding small breast cancers, but it does not detect them all and is not a substitute for careful clinical examination. A negative mammogram does not negate a clinically suspicious finding and should not result in delay in biopsying a clinically suspicious abnormality. "Our facility is accredited by the [employer] Mammography Program."
== END | disposition home or self-care (01) ==
LOC: MAMMO 11:07
PROVIDERS: ATTEND Nurse Practitioner Family
DX: Z12.31 Encounter for screening mammogram for malignant neoplasm of breast (principal); N64.89 Other specified disorders of breast
CPT/HCPCS: 77067